=== PATIENT | female | born 1985 | race Caucasian/White ===

== ENCOUNTER 2018-07-27 13:46 | Emergency (ER) | payer MEDICAID, SELFPAY ==
[2018-07-27 13:49] VITALS: BP 138/69; PULSE 60; RESP 20; TEMP 37.1; O2SAT 100
--- NOTE | 2018-07-27 14:03 | W.ED.GENAD ---
Discharge Plan Disposition Patient Disposition: HOME Condition: Stable Discharge Details Chief Complaint: Sorethroat Clinical Impression: Sore throat Primary Care Provider: ROHINI GAXIOLA ED Provider: Marck Elliott Home Meds and New Rx's Prescriptions: No Action multivitamin [Multi-Day] 1 EACH tablet 1 tab PO DAILY RF: 0 azithromycin 250 mg Tablet 250 mg PO DAILY RF: 0 Discharge Instructions Instructions: Pharyngitis (ED) Additional Instructions: I have placed you on our follow up list to see an ENT specialist you can take 1000mg tylenol and 600mg ibuprofen every 6 hours for pain as needed If you have difficulty breathing or inability to swallow liquids return to the emergency department for reevaluation Medical Decision Making 33 yo female without chronic medical problems comes in with several weeks of sore throat. She was tested for strep 2 weeks ago and placed on penicillin, didn't improve so was placed on augmentin the next day which she finished last Tuesday. The sore throat never really went away and was started on azithromycin which she currently is taking. She did have a fever a few days ago. She denies rashes, has had body aches. She is speaking in full sentences on exam with midline uvula and no significant erythema of the psoterior pharynx and no pain over the hyoid or restricted neck movements, no findings to suggest rpa, airplane captain, epilgotitis or pharyngitis at this time. I suspect she could have a viral illness given her myalgias, possible mono. She denies risk factor for hIV so do not feel testing at this time for this indicated. I am going to refer to ENT for further evaluate for unclear cause of her sore throat within 1-2 weeks, and return precautions given Differential Diagnosis pharyngitis, viral illness HPI General Mode of arrival: ambulatory. Date/Time Provider Initiated Documentation: 07/27/18 14:01. Limitations to Documentation: no limitations. Information obtained by: patient. History of Present Illness 33 year old F presents to the emergency department with the chief complaint of sore throat, and is localized to the mouth (throat). Patient reports no radiation. Patient started experiencing this week(s) (2) and it has been constant. No relieving factors improve symptom(s), No exacerbating factors reported . Related Data Home Medications Medication Instructions Recorded Confirmed multivitamin [Multi-Day] 1 tab PO DAILY 07/14/15 07/27/18 azithromycin 250 mg PO DAILY 07/27/18 07/27/18 Allergies Allergy/AdvReac Type Severity Reaction Status Date / Time amoxicillin [From Augmentin] AdvReac Other (See Unverified 07/27/18 13:54 Comment) clavulanic acid AdvReac Other (See Unverified 07/27/18 13:54 [From Augmentin] Comment) General Stated Complaint: Sorethroat JIM: 3 Review of Systems Review of Systems All systems reviewed & are unremarkable except as noted in HPI and below Constitutional Denies chills, Denies fever(s) and Denies weakness ENT Denies change in voice Cardiovascular Denies chest pain and Denies dyspnea Respiratory Denies cough and Denies dyspnea Gastrointestinal Denies abdominal pain, Denies nausea and Denies vomiting Integumentary/Breasts Denies rash Neurologic Denies weakness [facility] Social History Smoking/Tobacco Use Status: Never Alcohol Intake: never Drug use: Never Substance use type: does not use Do you feel safe at home: Yes Do you feel safe in your relationship?: Yes Exam Const General: no acute distress Orientation: alert HENMT Head: normal to inspection Ears: external ears normal General nose exam: external nose normal Mouth: moist mucous membranes Eyes General: appearance normal, both eyes and all related structures Neck Neck: normal visual inspection Resp Effort & Inspection: normal respiratory effort and able to speak in complete sentences Cardio Rate: regular rate Skin General skin exam: no rashes or lesions noted Neuro General: alert and oriented x3 Extrem General: normal to inspection Psych Mental Status: mental status grossly normal Course Vital Signs Temperature 37.1 C 07/27/18 13:49 Pulse 60 07/27/18 13:49 Respiratory Rate 20 07/27/18 13:49 Blood Pressure 138/69 07/27/18 13:49 Pulse Oximetry 100 07/27/18 13:49 Temperature 37.1 C 07/27/18 13:49 Temperature Source Temporal Artery Scan 07/27/18 13:49 Pulse 60 07/27/18 13:49 Respiratory Rate 20 07/27/18 13:49 Respiratory Effort Non-Labored 07/27/18 13:49 Blood Pressure 138/69 07/27/18 13:49 Pulse Oximetry 100 07/27/18 13:49 Oxygen Delivery Method Room Air 07/27/18 13:49 Oxygen Flow Rate 0 07/27/18 13:49 Pain Level 4 07/27/18 13:49
[2018-07-27 14:06] VITALS: BP 138/69; PULSE 60; RESP 20; TEMP 37.1; O2SAT 100
[2018-07-27] MEDS: Dexamethasone 10 MG/ML VIAL PO (14:06)
--- NOTE | 2018-07-27 14:09 | ED.GENADUL_ITS ---
Discharge Plan Disposition Patient Disposition: HOME Condition: Stable Discharge Details Chief Complaint: Sorethroat Clinical Impression: Sore throat Primary Care Provider: ROHINI GAXIOLA ED Provider: Marck Elliott Home Meds and New Rx's Prescriptions: No Action multivitamin [Multi-Day] 1 EACH tablet 1 tab PO DAILY RF: 0 azithromycin 250 mg Tablet 250 mg PO DAILY RF: 0 Discharge Instructions Instructions: Pharyngitis (ED) Additional Instructions: I have placed you on our follow up list to see an ENT specialist you can take 1000mg tylenol and 600mg ibuprofen every 6 hours for pain as needed If you have difficulty breathing or inability to swallow liquids return to the emergency department for reevaluation Medical Decision Making 33 yo female without chronic medical problems comes in with several weeks of sore throat. She was tested for strep 2 weeks ago and placed on penicillin, didn't improve so was placed on augmentin the next day which she finished last Tuesday. The sore throat never really went away and was started on azithromycin which she currently is taking. She did have a fever a few days ago. She denies rashes, has had body aches. She is speaking in full sentences on exam with midline uvula and no significant erythema of the psoterior pharynx and no pain over the hyoid or restricted neck movements, no findings to suggest rpa, ship captain, epilgotitis or pharyngitis at this time. I suspect she could have a viral illness given her myalgias, possible mono. She denies risk factor for hIV so do not feel testing at this time for this indicated. I am going to refer to ENT for further evaluate for unclear cause of her sore throat within 1-2 weeks, and return precautions given Differential Diagnosis pharyngitis, viral illness HPI General Mode of arrival: ambulatory . Date/Time Provider Initiated Documentation: 07/27/18 14:01 . Limitations to Documentation: no limitations . Information obtained by: patient . History of Present Illness 33 year old F presents to the emergency department with the chief complaint of sore throat, and is localized to the mouth (throat). Patient reports no radiation. Patient started experiencing this week(s) (2) and it has been constant. No relieving factors improve symptom(s), No exacerbating factors reported . Related Data Home Medications Medication Instructions Recorded Confirmed multivitamin [Multi-Day] 1 tab PO DAILY 07/14/15 07/27/18 azithromycin 250 mg PO DAILY 07/27/18 07/27/18 Allergies Allergy/AdvReac Type Severity Reaction Status Date / Time amoxicillin [From Augmentin] AdvReac Other (See Unverified 07/27/18 13:54 Comment) clavulanic acid AdvReac Other (See Unverified 07/27/18 13:54 [From Augmentin] Comment) General Stated Complaint: Sorethroat JIM: 3 Review of Systems Review of Systems All systems reviewed & are unremarkable except as noted in HPI and below Constitutional Denies chills, Denies fever(s) and Denies weakness ENT Denies change in voice Cardiovascular Denies chest pain and Denies dyspnea Respiratory Denies cough and Denies dyspnea Gastrointestinal Denies abdominal pain, Denies nausea and Denies vomiting Integumentary/Breasts Denies rash Neurologic Denies weakness [facility] Social History Smoking/Tobacco Use Status: Never Alcohol Intake: never Drug use: Never Substance use type: does not use Do you feel safe at home: Yes Do you feel safe in your relationship?: Yes Exam Const General: no acute distress Orientation: alert HENMT Head: normal to inspection Ears: external ears normal General nose exam: external nose normal Mouth: moist mucous membranes Eyes General: appearance normal, both eyes and all related structures Neck Neck: normal visual inspection Resp Effort & Inspection: normal respiratory effort and able to speak in complete sentences Cardio Rate: regular rate Skin General skin exam: no rashes or lesions noted Neuro General: alert and oriented x3 Extrem General: normal to inspection Psych Mental Status: mental status grossly normal Course Vital Signs Temperature 37.1 C 07/27/18 13:49 Pulse 60 07/27/18 13:49 Respiratory Rate 20 07/27/18 13:49 Blood Pressure 138/69 07/27/18 13:49 Pulse Oximetry 100 07/27/18 13:49 Temperature 37.1 C 07/27/18 13:49 Temperature Source Temporal Artery Scan 07/27/18 13:49 Pulse 60 07/27/18 13:49 Respiratory Rate 20 07/27/18 13:49 Respiratory Effort Non-Labored 07/27/18 13:49 Blood Pressure 138/69 07/27/18 13:49 Pulse Oximetry 100 07/27/18 13:49 Oxygen Delivery Method Room Air 07/27/18 13:49 Oxygen Flow Rate 0 07/27/18 13:49 Pain Level 4 07/27/18 13:49
--- NOTE | 2018-07-28 08:17 | PDOC.ERCMPRO ---
Care Management Progress Note 07/28-Dr. Elliott requested assistance with an ENT f/u soon for a sore throat. Referral faxed to ENT this am.
== END 2018-07-27 14:12 | disposition home or self-care (01) ==
LOC: ER 14:18
PROVIDERS: Emergency Provider Emergency Medicine; PCP Nurse Practitioner Adult Health
DX: J02.9 Acute pharyngitis, unspecified (principal); R50.9 Fever, unspecified; M79.10 Myalgia, unspecified site
CPT/HCPCS: 99283; J1100

== ENCOUNTER 2020-04-30 08:57 | Outpatient (CLI) | payer MEDICAID, SELFPAY ==
[2020-05-01 18:47] LABS: COVID-19 RT-PCR UVMMC Result Negative (Negative)
== END 2020-04-30 09:17 ==
PROVIDERS: PCP Nurse Practitioner Adult Health; Visit Provider Surgery Plastic and Reconstructive Surgery
DX: Z11.59 Encounter for screening for other viral diseases (principal); Z01.818 Encounter for other preprocedural examination
CPT/HCPCS: U0003

== ENCOUNTER 2023-11-02 19:48 | Outpatient (REF) | payer MEDICAID, SELFPAY | END 2023-11-02 19:49 | disposition home or self-care (01) | LOC: LBN 19:48 | PROVIDERS: PCP Nurse Practitioner Adult Health; Visit Provider Physician Assistant Medical | DX: J02.9 Acute pharyngitis, unspecified (principal) | CPT/HCPCS: 87070 ==

== ENCOUNTER 2023-11-07 04:33 | Outpatient (CLI) | payer SELFPAY ==
[2023-11-07 23:13] LABS: HBs Antibody, Quant <3.1 mIU/mL (See Note); Hepatitis B Surface Ab Negative (See Note)
== END 2023-11-07 04:34 | disposition home or self-care (01) ==
LOC: LBO 04:33
PROVIDERS: PCP Nurse Practitioner Adult Health; Visit Provider Nurse Practitioner Family
DX: Z02.1 Encounter for pre-employment examination (principal); Z11.59 Encounter for screening for other viral diseases
CPT/HCPCS: 36415; 86706